=== PATIENT | female | born 1950 | race Caucasian/White ===

== ENCOUNTER 2024-02-03 17:34 | Inpatient (IN) | payer MEDICARE ==
[2024-02-03 18:20] LABS: #Basophils 0.04 10x3/uL (0.0-0.2); %Basophils 0.5 % (0.0-1.0); %Eosinophils 1.9 % (0.0-10.0); %Lymphocytes 31.6 % (21.0-51.0); %Monocytes 11.6 % (0.0-10.0); %Neutrophils 54.1 % (42.0-75.0); Hematocrit 39.8 % (36.0-47.0); Hemoglobin 12.3 g/dL (12.0-16.0); Mean Corpuscular HGB CONC 30.9 g/dL (32.0-36.0); Mean Corpuscular Hemoglobin 29.4 pg (27.0-31.0); Mean Corpuscular Volume 95.2 fL (78.0-98.0); Mean Platelet Volume 10.2 fL (7.4-10.4); Platelet Count 222 10x3/uL (130-400); RBC Distribution Width 15.9 % (11.5-14.5); Red Blood Cell (RBC) Count 4.18 mill/uL (4.20-5.40)
[2024-02-03 18:38] LABS: ALT (SGPT) 46 U/L (8-55); AST (SGOT) 37 U/L (5-34); Alkaline Phosphatase 86 U/L (40-110); Anion Gap 13 mmol/L (10-20); BUN (Urea Nitrogen) 32 mg/dL (9.8-20.1); Bilirubin, Total 1.2 mg/dL (0.2-1.2); Calc. Creatinine Clearance 0 mL/min (70-130); Calcium 8.9 mg/dL (7.8-10.44); Carbon Dioxide 22 mmol/L (23-31); Chloride 108 mmol/L (98-107); Estimated GFR 61; Globulin 3.4 g/dL (2.4-3.5); Glucose 103 mg/dL (83-110); Potassium 4.5 mmol/L (3.5-5.1); Protein, Total 6.4 g/dL (5.8-8.1); Sodium 138 mmol/L (136-145)
[2024-02-03] MEDS ORDERED: Furosemide 40 MG (4 mL) VIAL ONE (19:25)
[2024-02-03] MEDS ORDERED: Nitroglycerin 2% Ointment 1 INCH/1 GM Packet ONE (19:25)
[2024-02-03] MEDS ORDERED: Ondansetron PF 4 MG/2 ML Vial IVP PRN (21:36)
[2024-02-03] MEDS ORDERED: Ondansetron ODT 4 MG TAB PO PRN (21:36)
[2024-02-03] MEDS ORDERED: Acetaminophen 650 MG Suppository PR PRN (21:36)
[2024-02-03 22:21] LABS: Hemoglobin A1c 6.3 % (4.0-6.0)
[2024-02-03 22:28] VITALS: BMI 37.7
[2024-02-03 22:28] LABS: Troponin I 0.018 ng/mL (< 0.028)
[2024-02-03] MEDS: Furosemide 40 MG (4 mL) VIAL SLOW IVP SCH (22:43)
[2024-02-03] MEDS: Gabapentin 300 MG CAP PO SCH (23:33)
[2024-02-04 01:42] LABS: Troponin I 0.023 ng/mL (< 0.028)
[2024-02-04 04:41] LABS: #Basophils 0.06 10x3/uL (0.0-0.2); %Basophils 0.7 % (0.0-1.0); %Eosinophils 2.3 % (0.0-10.0); %Lymphocytes 28.1 % (21.0-51.0); %Monocytes 12.4 % (0.0-10.0); %Neutrophils 56.3 % (42.0-75.0); Hematocrit 39.7 % (36.0-47.0); Hemoglobin 12.5 g/dL (12.0-16.0); Mean Corpuscular HGB CONC 31.5 g/dL (32.0-36.0); Mean Corpuscular Hemoglobin 29.6 pg (27.0-31.0); Mean Corpuscular Volume 94.1 fL (78.0-98.0); Mean Platelet Volume 10.6 fL (7.4-10.4); Platelet Count 231 10x3/uL (130-400); RBC Distribution Width 15.8 % (11.5-14.5); Red Blood Cell (RBC) Count 4.22 mill/uL (4.20-5.40)
[2024-02-04 05:10] LABS: Anion Gap 13 mmol/L (10-20); BUN (Urea Nitrogen) 27 mg/dL (9.8-20.1); Calc. Creatinine Clearance 83 mL/min (70-130); Calcium 9.2 mg/dL (7.8-10.44); Carbon Dioxide 24 mmol/L (23-31); Chloride 105 mmol/L (98-107); Estimated GFR 61; Glucose 126 mg/dL (83-110); Magnesium 1.9 mg/dL (1.6-2.6); Potassium 3.8 mmol/L (3.5-5.1); Sodium 138 mmol/L (136-145)
[2024-02-04] MEDS: Atorvastatin Calcium 20 MG TAB PO SCH (08:53)
[2024-02-04] MEDS: Famotidine 20 MG TAB PO SCH (08:53)
[2024-02-04] MEDS: Gabapentin 300 MG CAP PO SCH (08:54)
[2024-02-04] MEDS: Carvedilol 6.25 MG TAB PO SCH (08:54)
[2024-02-04] MEDS: Famotidine/PF 20 mg/2ml Vial SLOW IVP SCH (08:54)
[2024-02-04] MEDS: Apixaban 5 MG TAB PO SCH (08:54)
[2024-02-04] MEDS: Alogliptin 6.25 MG TAB PO SCH (08:54)
[2024-02-04] MEDS: Empagliflozin 10 MG TAB PO SCH (08:54)
[2024-02-04] MEDS: Losartan 25 MG TAB PO SCH (08:55)
[2024-02-05 05:11] LABS: Hemoglobin A1c 6.3 % (4.0-6.0)
[2024-02-05] MEDS: Carvedilol 3.125 MG TAB PO SCH (11:47)
[2024-02-05 13:04] LABS: #Basophils 0.05 10x3/uL (0.0-0.2); %Basophils 0.6 % (0.0-1.0); %Eosinophils 3.4 % (0.0-10.0); %Lymphocytes 23.2 % (21.0-51.0); %Monocytes 9.4 % (0.0-10.0); %Neutrophils 63.3 % (42.0-75.0); Hemoglobin 12.8 g/dL (12.0-16.0); Mean Corpuscular HGB CONC 31.2 g/dL (32.0-36.0); Mean Corpuscular Hemoglobin 29.8 pg (27.0-31.0); Mean Corpuscular Volume 95.3 fL (78.0-98.0); Mean Platelet Volume 10.2 fL (7.4-10.4); Platelet Count 236 10x3/uL (130-400); RBC Distribution Width 15.9 % (11.5-14.5)
[2024-02-05 13:22] LABS: ALT (SGPT) 41 U/L (8-55); AST (SGOT) 27 U/L (5-34); Albumin 2.8 g/dL (3.4-4.8); Alkaline Phosphatase 81 U/L (40-110); Anion Gap 11 mmol/L (10-20); BUN (Urea Nitrogen) 31 mg/dL (9.8-20.1); Bilirubin, Total 1.1 mg/dL (0.2-1.2); Calc. Creatinine Clearance 58 mL/min (70-130); Calcium 8.9 mg/dL (7.8-10.44); Carbon Dioxide 31 mmol/L (23-31); Chloride 104 mmol/L (98-107); Estimated GFR 41; Globulin 3.6 g/dL (2.4-3.5); Glucose 114 mg/dL (83-110); Potassium 3.9 mmol/L (3.5-5.1); Protein, Total 6.4 g/dL (5.8-8.1); Sodium 142 mmol/L (136-145)
[2024-02-05] MEDS: Acetaminophen 325 MG TAB PO PRN (21:07)
[2024-02-06 05:40] LABS: #Basophils 0.07 10x3/uL (0.0-0.2); %Basophils 0.9 % (0.0-1.0); %Eosinophils 4.7 % (0.0-10.0); %Lymphocytes 29.7 % (21.0-51.0); %Monocytes 10.8 % (0.0-10.0); %Neutrophils 53.7 % (42.0-75.0); Hemoglobin 12.4 g/dL (12.0-16.0); Mean Corpuscular Volume 96.6 fL (78.0-98.0); Mean Platelet Volume 10.1 fL (7.4-10.4); Platelet Count 225 10x3/uL (130-400); RBC Distribution Width 15.8 % (11.5-14.5); Red Blood Cell (RBC) Count 4.14 mill/uL (4.20-5.40)
[2024-02-06 06:07] LABS: ALT (SGPT) 35 U/L (8-55); AST (SGOT) 23 U/L (5-34); Albumin 2.7 g/dL (3.4-4.8); Alkaline Phosphatase 83 U/L (40-110); Anion Gap 12 mmol/L (10-20); BUN (Urea Nitrogen) 31 mg/dL (9.8-20.1); Calc. Creatinine Clearance 61 mL/min (70-130); Calcium 8.7 mg/dL (7.8-10.44); Carbon Dioxide 30 mmol/L (23-31); Chloride 104 mmol/L (98-107); Estimated GFR 43; Globulin 3.5 g/dL (2.4-3.5); Glucose 132 mg/dL (83-110); Potassium 3.7 mmol/L (3.5-5.1); Protein, Total 6.2 g/dL (5.8-8.1); Sodium 142 mmol/L (136-145)
[2024-02-06] MEDS: Sacubitril 24MG/Valsartan 26 MG TAB PO SCH ×2 (09:00→21:22)
[2024-02-06] MEDS: Spironolactone 25 MG TAB PO SCH (09:00)
[2024-02-07] MEDS ORDERED: Spironolactone 25 MG TAB PO SCH (08:00)
[2024-02-07] MEDS ORDERED: Carvedilol 6.25 MG TAB PO SCH (08:00)
[2024-02-07 12:20] LABS: #Basophils 0.06 10x3/uL (0.0-0.2); %Basophils 0.6 % (0.0-1.0); %Eosinophils 3.3 % (0.0-10.0); %Lymphocytes 26.6 % (21.0-51.0); %Monocytes 11.3 % (0.0-10.0); Hematocrit 43.1 % (36.0-47.0); Hemoglobin 13.3 g/dL (12.0-16.0); Mean Corpuscular HGB CONC 30.9 g/dL (32.0-36.0); Mean Corpuscular Hemoglobin 29.6 pg (27.0-31.0); Mean Corpuscular Volume 95.8 fL (78.0-98.0); Mean Platelet Volume 10.1 fL (7.4-10.4); Platelet Count 262 10x3/uL (130-400); RBC Distribution Width 15.8 % (11.5-14.5)
[2024-02-07 12:48] LABS: ALT (SGPT) 33 U/L (8-55); AST (SGOT) 24 U/L (5-34); Albumin 2.9 g/dL (3.4-4.8); Alkaline Phosphatase 87 U/L (40-110); Anion Gap 10 mmol/L (10-20); BUN (Urea Nitrogen) 27 mg/dL (9.8-20.1); Calc. Creatinine Clearance 71 mL/min (70-130); Calcium 9.4 mg/dL (7.8-10.44); Carbon Dioxide 31 mmol/L (23-31); Chloride 105 mmol/L (98-107); Estimated GFR 54; Globulin 3.9 g/dL (2.4-3.5); Glucose 99 mg/dL (83-110); Potassium 4.7 mmol/L (3.5-5.1); Protein, Total 6.8 g/dL (5.8-8.1); Sodium 141 mmol/L (136-145)
[2024-02-07 13:30] VITALS: TEMP 97.4
[2024-02-07 14:19] VITALS: BP 140/66
== END 2024-02-07 14:42 | disposition home health service (06) | DRG 291 ==
LOC: ERS 17:34 → 2NO 20:23
PROVIDERS: ADMIT Internal Medicine; ATTEND Internal Medicine
DX: I11.0 Hypertensive heart disease with heart failure (principal); I50.43 Acute on chronic combined systolic (congestive) and diastolic (congestive) heart failure; J96.11 Chronic respiratory failure with hypoxia; E78.5 Hyperlipidemia, unspecified; I25.2 Old myocardial infarction; Z90.710 Acquired absence of both cervix and uterus; Z96.653 Presence of artificial knee joint, bilateral; Z88.5 Allergy status to narcotic agent; Z88.2 Allergy status to sulfonamides; F41.9 Anxiety disorder, unspecified; Z79.01 Long term (current) use of anticoagulants; Z79.899 Other long term (current) drug therapy; E11.9 Type 2 diabetes mellitus without complications; I25.10 Atherosclerotic heart disease of native coronary artery without angina pectoris; Z86.711 Personal history of pulmonary embolism; E66.9 Obesity, unspecified; Z68.35 Body mass index [BMI] 35.0-35.9, adult; I42.9 Cardiomyopathy, unspecified
CPT/HCPCS: 36415; 71045; 80048; 80053; 83036; 83735; 83880; 84443; 84484; 85025; 93005; 93010; 93798; 97139; J1940; S0028

== ENCOUNTER 2025-03-01 18:42 | Inpatient (IN) | payer MEDICARE ==
[2025-03-01] MEDS ORDERED: Ondansetron PF 4 MG/2 ML Vial IVP PRN (22:40)
[2025-03-01] MEDS ORDERED: Glucagon 1 MG/ML KIT IM PRN (22:43)
[2025-03-01] MEDS ORDERED: Dextrose 50% Abboject 50 ML SYRINGE SLOW IVP PRN (22:43)
[2025-03-02] MEDS: Gabapentin 300 MG CAP PO SCH (00:06)
[2025-03-02 00:08] LABS: Troponin I 0.036 ng/mL (< 0.028)
[2025-03-02] MEDS: Carvedilol 6.25 MG TAB PO SCH ×2 (00:08→08:55)
[2025-03-02 04:56] LABS: #Basophils 0.05 10x3/uL (0.0-0.2); #Eosinophils 0.18 10x3/uL (0.0-0.7); #Monocytes 1.10 10x3/uL (0.11-0.59); #Neutrophils 4.67 10x3/uL (1.40-6.50); %Basophils 0.6 % (0.0-1.0); %Eosinophils 2.0 % (0.0-10.0); %Lymphocytes 33.6 % (21.0-51.0); %Monocytes 12.1 % (0.0-10.0); %Neutrophils 51.5 % (42.0-75.0); Hematocrit 42.9 % (36.0-47.0); Hemoglobin 14.0 g/dL (12.0-16.0); Mean Corpuscular Hemoglobin 32.9 pg (27.0-31.0); Mean Corpuscular Volume 100.9 fL (78.0-98.0); Platelet Count 180 10x3/uL (130-400); Red Blood Cell (RBC) Count 4.25 mill/uL (4.20-5.40); White Blood Cell (WBC) Count 9.07 10x3/uL (4.8-10.8)
[2025-03-02 05:33] LABS: Anion Gap 16 mmol/L (10-20); BUN (Urea Nitrogen) 32 mg/dL (9.8-20.1); Calc. Creatinine Clearance 60 mL/min (70-130); Calcium 8.7 mg/dL (7.8-10.44); Carbon Dioxide 25 mmol/L (23-31); Chloride 103 mmol/L (98-107); Glucose 136 mg/dL (83-110); Potassium 4.1 mmol/L (3.5-5.1); Sodium 140 mmol/L (136-145)
[2025-03-02] MEDS: Furosemide 40 MG (4 mL) VIAL SLOW IVP SCH (06:06)
[2025-03-02] MEDS: Apixaban 5 MG TAB PO SCH (08:55)
[2025-03-02] MEDS: Dapagliflozin Propanediol 10 MG TAB PO SCH (08:56)
[2025-03-02] MEDS: Gabapentin 100 MG CAP PO SCH (08:56)
[2025-03-02] MEDS: Famotidine 20 MG TAB PO SCH (08:56)
[2025-03-02] MEDS: Sacubitril 24MG/Valsartan 26 MG TAB PO SCH (08:57)
[2025-03-02 15:10] VITALS: BMI 39.6
[2025-03-02 22:08] LABS: ALT (SGPT) 8 U/L (Less than 34); AST (SGOT) 15 U/L (11-34); Albumin 3.1 g/dL (3.1-4.5); Alkaline Phosphatase 80 U/L (40-110); Anion Gap 16 mmol/L (10-20); BUN (Urea Nitrogen) 36 mg/dL (9.8-20.1); Bilirubin, Total 0.8 mg/dL (0.3-1.2); Calc. Creatinine Clearance 51 mL/min (70-130); Calcium 8.7 mg/dL (7.8-10.44); Carbon Dioxide 26 mmol/L (23-31); Chloride 103 mmol/L (98-107); Globulin 4.0 g/dL (2.4-3.5); Glucose 102 mg/dL (83-110); Magnesium 1.9 mg/dL (1.6-2.6); Potassium 4.1 mmol/L (3.5-5.1); Sodium 141 mmol/L (136-145)
[2025-03-02] MEDS: Acetaminophen 325 MG TAB PO PRN (23:30)
[2025-03-03] MEDS: DOBUTamine 500 mg/250 ml 500 MG in Premix 1 BAG IVPB SCH (01:37)
[2025-03-03 05:28] LABS: #Basophils 0.04 10x3/uL (0.0-0.2); #Eosinophils 0.21 10x3/uL (0.0-0.7); #Monocytes 1.20 10x3/uL (0.11-0.59); #Neutrophils 5.39 10x3/uL (1.40-6.50); %Basophils 0.4 % (0.0-1.0); %Eosinophils 2.1 % (0.0-10.0); %Lymphocytes 30.8 % (21.0-51.0); %Monocytes 12.1 % (0.0-10.0); %Neutrophils 54.2 % (42.0-75.0); Hematocrit 43.0 % (36.0-47.0); Hemoglobin 14.1 g/dL (12.0-16.0); Mean Corpuscular Hemoglobin 32.9 pg (27.0-31.0); Mean Corpuscular Volume 100.2 fL (78.0-98.0); Platelet Count 202 10x3/uL (130-400); Red Blood Cell (RBC) Count 4.29 mill/uL (4.20-5.40); White Blood Cell (WBC) Count 9.94 10x3/uL (4.8-10.8)
[2025-03-03 05:53] LABS: Anion Gap 15 mmol/L (10-20); BUN (Urea Nitrogen) 44 mg/dL (9.8-20.1); Calc. Creatinine Clearance 44 mL/min (70-130); Calcium 8.6 mg/dL (7.8-10.44); Carbon Dioxide 26 mmol/L (23-31); Chloride 101 mmol/L (98-107); Glucose 131 mg/dL (83-110); Magnesium 1.9 mg/dL (1.6-2.6); Potassium 4.3 mmol/L (3.5-5.1); Sodium 138 mmol/L (136-145)
[2025-03-03] MEDS: Magnesium 2 GM/50 ML(in water) 2 GM in Premix 1 BAG IVPB SCH (11:42)
[2025-03-03] MEDS ORDERED: Senokot 8.6 MG TAB PO PRN (14:15)
[2025-03-03] MEDS: Gabapentin 100 MG CAP PO SCH (21:19)
[2025-03-04 04:44] LABS: #Basophils 0.05 10x3/uL (0.0-0.2); #Eosinophils 0.27 10x3/uL (0.0-0.7); #Monocytes 1.12 10x3/uL (0.11-0.59); #Neutrophils 4.79 10x3/uL (1.40-6.50); %Basophils 0.6 % (0.0-1.0); %Eosinophils 3.0 % (0.0-10.0); %Lymphocytes 29.7 % (21.0-51.0); %Monocytes 12.6 % (0.0-10.0); %Neutrophils 53.8 % (42.0-75.0); Hematocrit 44.3 % (36.0-47.0); Hemoglobin 14.5 g/dL (12.0-16.0); Mean Corpuscular Hemoglobin 33.2 pg (27.0-31.0); Mean Corpuscular Volume 101.4 fL (78.0-98.0); Platelet Count 187 10x3/uL (130-400); Red Blood Cell (RBC) Count 4.37 mill/uL (4.20-5.40); White Blood Cell (WBC) Count 8.91 10x3/uL (4.8-10.8)
[2025-03-04 05:12] LABS: CAUTI Indications for Culture Alt mental st,lethar; Glucose, Urine (Dipstick) Greater than 1000 mg/dL (Negative); Leukocyte Negative Leu/uL (Negative); Protein, Urine (Dipstick) Negative (Neg-Trace); RBC/HPF 0-3 HPF (0-3); Specific Gravity, Urine 1.009 (1.002-1.036); WBC/HPF 0-3 HPF (0-3)
[2025-03-04 05:13] LABS: Bacteria/HPF 1+ HPF (None Seen)
[2025-03-04 05:14] LABS: Urine Culture Reflex No No
[2025-03-04 05:20] LABS: Anion Gap 14 mmol/L (10-20); BUN (Urea Nitrogen) 49 mg/dL (9.8-20.1); Calc. Creatinine Clearance 39 mL/min (70-130); Calcium 8.5 mg/dL (7.8-10.44); Carbon Dioxide 28 mmol/L (23-31); Chloride 100 mmol/L (98-107); Glucose 108 mg/dL (83-110); Magnesium 2.5 mg/dL (1.6-2.6); Potassium 4.1 mmol/L (3.5-5.1); Sodium 138 mmol/L (136-145)
[2025-03-04] MEDS: Famotidine 20 MG TAB PO SCH (09:54)
[2025-03-05 05:14] LABS: Magnesium 2.6 mg/dL (1.6-2.6)
[2025-03-05 08:01] LABS: #Basophils 0.04 10x3/uL (0.0-0.2); #Eosinophils 0.28 10x3/uL (0.0-0.7); #Monocytes 0.98 10x3/uL (0.11-0.59); #Neutrophils 5.71 10x3/uL (1.40-6.50); %Basophils 0.4 % (0.0-1.0); %Eosinophils 3.1 % (0.0-10.0); %Lymphocytes 21.7 % (21.0-51.0); %Monocytes 10.9 % (0.0-10.0); %Neutrophils 63.7 % (42.0-75.0); Hematocrit 44.3 % (36.0-47.0); Hemoglobin 14.0 g/dL (12.0-16.0); Mean Corpuscular Hemoglobin 32.2 pg (27.0-31.0); Mean Corpuscular Volume 101.8 fL (78.0-98.0); Platelet Count 199 10x3/uL (130-400); Red Blood Cell (RBC) Count 4.35 mill/uL (4.20-5.40); White Blood Cell (WBC) Count 8.98 10x3/uL (4.8-10.8)
[2025-03-05 08:22] LABS: ALT (SGPT) Less than 7 U/L (Less than 34); AST (SGOT) 14 U/L (11-34); Albumin 3.1 g/dL (3.1-4.5); Alkaline Phosphatase 82 U/L (40-110); Anion Gap 16 mmol/L (10-20); BUN (Urea Nitrogen) 45 mg/dL (9.8-20.1); Bilirubin, Total 0.9 mg/dL (0.3-1.2); Calc. Creatinine Clearance 57 mL/min (70-130); Calcium 8.8 mg/dL (7.8-10.44); Carbon Dioxide 25 mmol/L (23-31); Chloride 102 mmol/L (98-107); Globulin 3.9 g/dL (2.4-3.5); Glucose 124 mg/dL (83-110); Potassium 4.3 mmol/L (3.5-5.1); Sodium 139 mmol/L (136-145)
[2025-03-05 17:16] VITALS: BMI 40.1
[2025-03-06 04:35] LABS: #Basophils 0.03 10x3/uL (0.0-0.2); #Eosinophils 0.30 10x3/uL (0.0-0.7); #Monocytes 0.93 10x3/uL (0.11-0.59); #Neutrophils 3.79 10x3/uL (1.40-6.50); %Basophils 0.4 % (0.0-1.0); %Eosinophils 4.0 % (0.0-10.0); %Lymphocytes 31.7 % (21.0-51.0); %Monocytes 12.6 % (0.0-10.0); %Neutrophils 51.2 % (42.0-75.0); Hematocrit 44.5 % (36.0-47.0); Hemoglobin 14.3 g/dL (12.0-16.0); Mean Corpuscular Hemoglobin 32.5 pg (27.0-31.0); Mean Corpuscular Volume 101.1 fL (78.0-98.0); Platelet Count 202 10x3/uL (130-400); Red Blood Cell (RBC) Count 4.40 mill/uL (4.20-5.40); White Blood Cell (WBC) Count 7.41 10x3/uL (4.8-10.8)
[2025-03-06 04:55] LABS: ALT (SGPT) Less than 7 U/L (Less than 34); AST (SGOT) 13 U/L (11-34); Albumin 3.2 g/dL (3.1-4.5); Alkaline Phosphatase 82 U/L (40-110); Anion Gap 12 mmol/L (10-20); BUN (Urea Nitrogen) 38 mg/dL (9.8-20.1); Bilirubin, Total 0.9 mg/dL (0.3-1.2); Calc. Creatinine Clearance 60 mL/min (70-130); Calcium 9.0 mg/dL (7.8-10.44); Carbon Dioxide 28 mmol/L (23-31); Chloride 104 mmol/L (98-107); Globulin 3.8 g/dL (2.4-3.5); Glucose 99 mg/dL (83-110); Magnesium 2.5 mg/dL (1.6-2.6); Potassium 4.5 mmol/L (3.5-5.1); Sodium 139 mmol/L (136-145)
[2025-03-06 12:27] VITALS: BP 110/55; TEMP 98.1
== END 2025-03-06 14:48 | disposition home health service (06) | DRG 280 ==
LOC: 2NO 18:42
PROVIDERS: ADMIT Internal Medicine; ATTEND Internal Medicine
DX: I13.0 Hypertensive heart and chronic kidney disease with heart failure and stage 1 through stage 4 chronic kidney disease, or unspecified chronic kidney disease (principal); I50.41 Acute combined systolic (congestive) and diastolic (congestive) heart failure; I21.A1 Myocardial infarction type 2; J96.21 Acute and chronic respiratory failure with hypoxia; Z68.41 Body mass index [BMI] 40.0-44.9, adult; N17.9 Acute kidney failure, unspecified; I45.2 Bifascicular block; E78.5 Hyperlipidemia, unspecified; E11.22 Type 2 diabetes mellitus with diabetic chronic kidney disease; E11.40 Type 2 diabetes mellitus with diabetic neuropathy, unspecified; E66.01 Morbid (severe) obesity due to excess calories; Z96.653 Presence of artificial knee joint, bilateral; F32.A Depression, unspecified; Z88.2 Allergy status to sulfonamides; Z88.5 Allergy status to narcotic agent; Z86.718 Personal history of other venous thrombosis and embolism; Z90.710 Acquired absence of both cervix and uterus; Z98.890 Other specified postprocedural states; Z79.899 Other long term (current) drug therapy; I25.2 Old myocardial infarction; F41.9 Anxiety disorder, unspecified; I25.10 Atherosclerotic heart disease of native coronary artery without angina pectoris; Z86.711 Personal history of pulmonary embolism; Z99.81 Dependence on supplemental oxygen; Z87.891 Personal history of nicotine dependence; N18.32 Chronic kidney disease, stage 3b; I27.20 Pulmonary hypertension, unspecified; Z79.01 Long term (current) use of anticoagulants; I42.8 Other cardiomyopathies; I08.1 Rheumatic disorders of both mitral and tricuspid valves; I95.2 Hypotension due to drugs; T46.3X5A Adverse effect of coronary vasodilators, initial encounter
CPT/HCPCS: 36415; 36416; 36600; 71045; 71275; 76770; 80048; 80053; 81001; 82805; 83735; 83880; 84145; 84443; 84484; 85025; 86141; 87040; 87149; 93005; 93010; 93306; 93798; 96374; J1250; J1815; J1940; J2260; J3475; Q9967